=== PATIENT | male | born 1985 | race Caucasian/White ===

== ENCOUNTER → 2021-12-03 | Outpatient (CLI) | payer OTHER ==
[~2021-12-03] MED LIST: IBUP800 PO; Norco 10-325 T1 EACH PO
[2021-12-10 11:09] LABS: CARBOXY-THC >157 (.)
== END | disposition home or self-care (01) ==
LOC: LAB SHORT 13:27 → LAB 13:27
PROVIDERS: Family Medicine
DX: F12.90 Cannabis use, unspecified, uncomplicated (principal); Z79.899 Other long term (current) drug therapy; F15.90 Other stimulant use, unspecified, uncomplicated
CPT/HCPCS: G0480

== ENCOUNTER 2022-01-07 08:11 | Day surgery (SDC) | payer OTHER ==
[~2022-01-07] VITALS: Ht 182.9 cm; Wt 74.2 kg
--- NOTE | 2022-01-07 10:19 | NUR ---
Ambulatory in Day Surgery Surgical site prepped with 2% Chlorhexidine cloth wipe. History, Chart, Medications and Allergies reviewed before start of procedure.Lungs clear T/O to Auscultation. Pre-Op teaching done. Pt verbalizes understanding. Patient confirms NPO status and agrees with scheduled surgery. Patient reports completing Chlorhexadine shower X2 prior to admission to hospital.
--- NOTE | 2022-01-07 18:38 | NUR ---
SHIFT SUMMARY PATIENT NEW ADMIT TO UNIT FROM PACU. POD 0 R CAITLYN. AMBULATED IN HALLS WITH PT USING FWW AND GAIT BELT. PAIN CONTROLLED WITH PO PAIN MEDS. PRESSURE DRESSINGS IN PLACE TO RIGHT HIP. PLAN TO DISCHARGE HOME TOMORROW 01/08/22 WHEN CLEARED BY OT. VOIDING, TOLERATING REGULAR DIET. SALINE LOCKED.
--- NOTE | 2022-01-08 04:06 | NUR ---
SUMMARY NO NEW ISSUES NOTED, PT HAS BE COMFORTABLE THROUGHOUT SHIFT. PT AMBULATORY AND TOLERATING WELL. PT HAS BEEN VOIDING WELL. PT RESTING COMFORTABLY.
[2022-01-08 06:46] LABS: BASOPHILS ABSOLUTE AUTO 0.02 K/mm3 (0.00-0.23); BASOPHILS PERCENT AUTO 0 % (0-2); EOSINOPHILS PERCENT AUTO 0 % (0-6); Hematocrit 37.1 % (37.0-53.0); Hemoglobin 12.3 g/dL (13.5-17.5); IMMATURE GRAN ABSOLUTE AUTO 0.11 K/mm3 (0.00-0.10); IMMATURE GRAN PERCENT AUTO 1 % (0-1); LYMPHOCYTES ABSOLUTE AUTO 1.83 K/mm3 (0.84-5.20); LYMPHOCYTES PERCENT AUTO 10 % (21-46); MONOCYTES ABSOLUTE AUTO 2.13 K/mm3 (0.16-1.47); MONOCYTES PERCENT AUTO 11 % (4-13); Mean Corpuscular HGB 30.4 pg (26.0-34.0); Mean Corpuscular HGB Conc 33.2 g/dL (31.5-36.5); Mean Corpuscular Volume 92 fL (80-100); Mean Platelet Volume 11.4 fL (9.1-12.4); NEUTROPHILS ABSOLUTE AUTO 14.65 K/mm3 (1.96-9.15); NEUTROPHILS PERCENT AUTO 78 % (41-73); Platelet Count 319 K/mm3 (150-400); RDW Coefficient Variation 13.4 % (11.7-14.2); RDW Standard Deviation 45.3 fL (35.1-46.3); Red Blood Cell Count 4.04 M/mm3 (4.30-5.90); White Blood Cell Count 18.74 K/mm3 (4.00-11.30)
[2022-01-08 07:05] LABS: Bun/Creatinine Ratio 10.8 (12.0-20.0); Calcium, Blood 9.4 mg/dL (8.5-10.1); Creatinine, Blood 0.65 mg/dL (0.60-1.20); Magnesium, Blood 2.1 mg/dL (1.6-2.4); Potassium, Blood 3.9 mmol/L (3.5-5.5)
[2022-01-08] MEDS ORDERED: ASPI81CH PO (09:57)
[2022-01-08] MEDS ORDERED: PROM25 PO (09:58)
[2022-01-08] MEDS ORDERED: ROXICODONE5 MG PO (09:58)
[2022-01-08] MEDS ORDERED: SULTRIDS PO (09:59)
--- NOTE | 2022-01-08 10:47 | NUR ---
DISCHARGE SUMMARY PT POD #1 FOR R TOTAL HIP. PT WORKED WELL WITH PT/OT AND CLEARED TO DC. PT'S PAIN IS MINIMAL BUT INCREASED SOME AFTER AMBULATION. [address] SOME DRAINAGE NOTED ON LARGEST DRESSING BUT OTHERWISE DRY AND INTACT. VSS. DISCHARGED HOME WITH PARENTS.
== END 2022-01-08 10:37 | disposition home or self-care (01) ==
LOC: ORSCMMR 08:11 → ORD 10:45 → ORSCMMR 10:45 → SURS 14:51 → ORSCMMR 01-08 10:37
PROVIDERS: Orthopaedic Surgery
PROC: 8E0YXBZ Computer Assisted Procedure of Lower Extremity (ICD-10-PCS; principal; 2022-01-07 10:45)
PROC: 0SR90JA Replacement of Right Hip Joint with Synthetic Substitute, Uncemented, Open Approach (ICD-10-PCS; principal; 2022-01-07 10:45)
DX: M87.051 Idiopathic aseptic necrosis of right femur (principal); Z87.891 Personal history of nicotine dependence
CPT/HCPCS: 36415; 72170; 80048; 83735; 85025; 88300; 88311; 97110; 97116; 97162; 97165; 97530; 97535; A9270; C1713; C1776; J0171; J0690; J0735; J1100; J1885; J2250; J2405; J2704; J2795; J3010; J3370; J7050; J7060; J7120

== ENCOUNTER 2022-04-29 05:47 | Day surgery (SDC) | payer OTHER ==
[~2022-04-29] VITALS: Ht 182.9 cm; Wt 80.3 kg
[~2022-04-29 05:47] MED LIST changes: +ASPI81CH PO; +PROM25 PO; +ROXICODONE5 MG PO; +SULTRIDS PO
--- NOTE | 2022-04-29 09:05 | NUR ---
04/29/22 0905 Zoë Israel GIVEN IN PRE-OP AT 0700
--- NOTE | 2022-04-29 11:47 | NUR ---
POST OP: REPORT RECEIVED FROM H[employer]SE [employer]ACE STARTER KIM. PT TO UNIT AT ABOUT 1130. PT IS A/O,VSS. SURGICAL SITE WNL. PT DENIES ANY N/T ABLE TO WIGGLE TOES. RATES PAIN 2/10. PT FAMILY AT BEDSIDE
--- NOTE | 2022-04-29 17:41 | NUR ---
SUMMARY: PT HAS DONE WELL POST OP. A/O, VSS. ABLE TO AMBULATE IN HALLS WITH THERAPY. MINIMAL PAIN. TOLERATING DIET AND VOIDING. NO CONCERNS AT THIS TIME, PLAN TO DC TOMORROW.
[2022-04-30 04:43] LABS: BASOPHILS PERCENT AUTO 0 % (0-2); EOSINOPHILS PERCENT AUTO 0 % (0-6); Hematocrit 33.5 % (37.0-53.0); Hemoglobin 11.3 g/dL (13.5-17.5); IMMATURE GRAN ABSOLUTE AUTO 0.04 K/mm3 (0.00-0.10); IMMATURE GRAN PERCENT AUTO 0 % (0-1); LYMPHOCYTES PERCENT AUTO 8 % (21-46); MONOCYTES ABSOLUTE AUTO 1.51 K/mm3 (0.16-1.47); MONOCYTES PERCENT AUTO 13 % (4-13); Mean Corpuscular HGB 29.3 pg (26.0-34.0); Mean Corpuscular HGB Conc 33.7 g/dL (31.5-36.5); Mean Corpuscular Volume 87 fL (80-100); Mean Platelet Volume 11.1 fL (9.1-12.4); NEUTROPHILS ABSOLUTE AUTO 8.92 K/mm3 (1.96-9.15); NEUTROPHILS PERCENT AUTO 78 % (41-73); Platelet Count 239 K/mm3 (150-400); RDW Coefficient Variation 13.5 % (11.7-14.2); RDW Standard Deviation 42.5 fL (35.1-46.3); Red Blood Cell Count 3.86 M/mm3 (4.30-5.90); White Blood Cell Count 11.37 K/mm3 (4.00-11.30)
[2022-04-30 05:01] LABS: Bun/Creatinine Ratio 16.9 (12.0-20.0); Calcium, Blood 8.4 mg/dL (8.5-10.1); Creatinine, Blood 0.59 mg/dL (0.60-1.20); Potassium, Blood 4.1 mmol/L (3.5-5.5)
--- NOTE | 2022-04-30 05:01 | NUR ---
SHIFT SUMMARY: A&0X4. PT AMBULATING WELL WITH FWW. RESTED COMFORTABLY T/O THE NIGHT. TOLERATING PO FLUIDS/FOOD AND VOIDING. PAIN WELL MANAGED PER EMAR ORDERS AND UNINTERRUPTED REST. CALLS APPROPRIATELY. PLANS TO DC HOME TODAY. PT RESTING AT THIS TIME WITH CALL LIGHT IN REACH.
[2022-04-30] MEDS ORDERED: Aspir 8181 MG PO (07:47)
[2022-04-30] MEDS ORDERED: SULTRIDS PO (07:48)
[2022-04-30] MEDS ORDERED: Percocet 5-3251 EACH PO (07:51)
--- NOTE | 2022-04-30 09:56 | NUR ---
DISCHARGE SUMMARY PATIENT ALERT AND ORIENTED. TOLERATING REGULAR DIET AND LIQUIDS. SALINE LOCKED. VOIDING WELL. SBA WITH FWW AND GAIT BELT. PAIN CONTROLLED WITH PO PAIN MEDS. DRESSINGS TO L HIP X3 CHANGED TO AQUACELS THIS AM BY ORTHO. DISCHARGE ORDER IN CHART. DISCHARGE EDUCATION GIVEN ON NEW MEDS, ACTIVITY, WOUND CARE, AND FOLLOW UP APPTS. IV DC'D WNL. PATIENT LEFT UNIT AT 0915 VIA WHEELCHAIR WITH FAMILY MEMBER FOR HOME.
== END 2022-04-30 10:46 | disposition home or self-care (01) ==
LOC: ORSCMMR 05:47 → ORD 07:30 → SURS 11:43 → ORSCMMR 04-30 10:46
PROVIDERS: Orthopaedic Surgery
PROC: 0SRB0JA Replacement of Left Hip Joint with Synthetic Substitute, Uncemented, Open Approach (ICD-10-PCS; principal; 2022-04-29 07:30)
DX: M16.12 Unilateral primary osteoarthritis, left hip (principal); M87.9 Osteonecrosis, unspecified; Z96.641 Presence of right artificial hip joint; Z87.891 Personal history of nicotine dependence
CPT/HCPCS: 36415; 72170; 80048; 83735; 85025; 88305; 88311; 97110; 97116; 97162; 97165; 97535; A9270; C1713; C1776; J0171; J0690; J0735; J1100; J1885; J2250; J2405; J2704; J2795; J3010; J3370; J7120